=== PATIENT | male | born 1995 | race Caucasian/White ===

== ENCOUNTER 2021-06-28 06:28 | Emergency (ER) | payer SELFPAY ==
[2021-06-28 06:43] VITALS: BP 159/102; PULSE 101
[2021-06-28] MEDS ORDERED: Alum Hydrox/Mag Hydrox/Simeth 30 ML, Lidocaine 2% 15 ML PO ONE ×2 (07:56)
== END 2021-06-28 09:00 | disposition home or self-care (01) ==
LOC: JD.ED 06:28
DX: K21.9 Gastro-esophageal reflux disease without esophagitis (principal); K29.00 Acute gastritis without bleeding; Z79.899 Other long term (current) drug therapy; Z72.0 Tobacco use
CPT/HCPCS: 36415; 71045; 80053; 84484; 85025; 85379; 93005; 99285; A9270